=== PATIENT | female | born 1990 | race Caucasian/White ===

== ENCOUNTER 2019-04-13 16:12 | Emergency (ER) | payer OTHER ==
[~2019-04-13] VITALS: Ht 170.2 cm; Wt 78.0 kg
--- NOTE | 2019-04-13 16:21 | NUR ---
VIRI MEEKS AT BEDSIDE FOR MSE.
[2019-04-13] MEDS ORDERED: QUET25TA3 PO (16:29)
[2019-04-13] MEDS ORDERED: NEURONTIN PO (16:29)
[2019-04-13 16:33] VITALS: BP 142/80
--- NOTE | 2019-04-13 16:33 | NUR ---
Patient discharged to home in stable conditon. Written and verbal after care instructions given. Patient verbalizes understanding of instructions. ALL BELONGINGS W/ PT. PT SELF-AMBULATED W/O DIFFICULTY.
== END 2019-04-13 16:34 | disposition home or self-care (01) ==
LOC: ER 16:12
DX: L03.114 Cellulitis of left upper limb (principal); L81.8 Other specified disorders of pigmentation; F31.9 Bipolar disorder, unspecified; Z79.899 Other long term (current) drug therapy
CPT/HCPCS: A4663

== ENCOUNTER 2019-05-15 13:47 | Emergency (ER) | payer OTHER ==
[~2019-05-15] VITALS: Ht 170.2 cm; Wt 79.4 kg
[~2019-05-15 13:47] MED LIST: NEURONTIN PO; QUET25TA3 PO
--- NOTE | 2019-05-15 15:02 | NUR ---
Patient discharged to home in stable conditon. Written and verbal after care instructions given. Patient verbalizes understanding of instructions.
== END 2019-05-15 15:00 | disposition home or self-care (01) ==
LOC: ER 13:47
DX: K04.7 Periapical abscess without sinus (principal); L03.114 Cellulitis of left upper limb; F31.9 Bipolar disorder, unspecified; Z79.899 Other long term (current) drug therapy
CPT/HCPCS: A4663

== ENCOUNTER 2019-05-27 16:14 | Emergency (ER) | payer OTHER ==
[~2019-05-27] VITALS: Ht 170.2 cm; Wt 77.1 kg
[2019-05-27] MEDS ORDERED: LET TOPICAL SOLUTION 8 ML UDC TP ONE (17:00)
[2019-05-27] MEDS ORDERED: SODIUM BICARBONATE 4.2 % (NEUT) 5 ML VIAL TP ONE (17:00)
[2019-05-27] MEDS ORDERED: LIDOCAINE HCL 2% 20 ML VIAL IJ ONE (17:00)
[2019-05-27] MEDS ORDERED: LET TOPICAL SOLUTION 8 ML UDC ONE (17:50)
[2019-05-27] MEDS ORDERED: HYDROCODONE/APAP 5-325MG TABLET PO ONE (18:30)
--- NOTE | 2019-05-27 18:43 | NUR ---
Patient discharged to home in stable conditon. Written and verbal after care instructions given. Patient verbalizes understanding of instructions.pt not driving. pt accompanied with friend
[2019-05-27] MEDS ORDERED: HYDROCODONE/APAP 5-325MG TABLET ONE (18:44)
== END 2019-05-27 18:45 | disposition home or self-care (01) ==
LOC: ER 16:16
DX: L02.414 Cutaneous abscess of left upper limb (principal); F31.9 Bipolar disorder, unspecified; Z79.899 Other long term (current) drug therapy
CPT/HCPCS: 10060; 99283; J3490; A4663

== ENCOUNTER 2019-05-28 13:05 | Emergency (ER) | payer OTHER ==
[~2019-05-28] VITALS: Ht 170.2 cm; Wt 77.1 kg
--- NOTE | 2019-05-28 13:51 | NUR ---
Patient discharged to home in stable conditon. Written and verbal after care instructions given. Patient verbalizes understanding of instructions.
== END 2019-05-28 13:53 | disposition home or self-care (01) ==
LOC: ER 13:05
DX: Z48.01 Encounter for change or removal of surgical wound dressing (principal); F31.9 Bipolar disorder, unspecified; Z79.899 Other long term (current) drug therapy
CPT/HCPCS: A4663

== ENCOUNTER 2019-05-30 13:39 | Emergency (ER) | payer OTHER ==
[~2019-05-30] VITALS: Ht 172.7 cm; Wt 77.1 kg
--- NOTE | 2019-05-30 13:53 | NUR ---
Dr gusman at the bedside for MSE.
[2019-05-30] MEDS ORDERED: VANCOMYCIN IV 200 ML ONE (14:06)
[2019-05-30] MEDS: VANCOMYCIN IV 1,000 MG in IV DEXTROSE 5% 250 ML IV ONE (14:21)
[2019-05-30] MEDS ORDERED: LET TOPICAL SOLUTION 8 ML UDC ONE (16:15)
[2019-05-30] MEDS: LET TOPICAL SOLUTION 8 ML UDC TP ONE (16:17)
[2019-05-30] MEDS ORDERED: SODIUM BICARBONATE 4.2 % (NEUT) 5 ML VIAL ONE (16:23)
[2019-05-30] MEDS ORDERED: LIDOCAINE HCL 2% 20 ML VIAL ONE (16:24)
[2019-05-30] MEDS: LIDOCAINE HCL 2% 20 ML VIAL TP ONE (16:40)
[2019-05-30] MEDS: SODIUM BICARBONATE 4.2 % (NEUT) 5 ML VIAL TP ONE (16:40)
[2019-05-30 17:03] VITALS: BP 122/64
--- NOTE | 2019-05-30 17:03 | NUR ---
IV removed. Catheter intact and site benign. Pressure and 4x4 gauze applied to site. No bleeding noted.
--- NOTE | 2019-05-30 17:05 | NUR ---
Patient discharged to home in stable conditon. Written and verbal after care instructions given. Patient verbalizes understanding of instructions.
== END 2019-05-30 17:05 | disposition home or self-care (01) ==
LOC: ER 13:45
DX: L02.414 Cutaneous abscess of left upper limb (principal); F31.9 Bipolar disorder, unspecified; Z79.899 Other long term (current) drug therapy
CPT/HCPCS: 10060; 87070; 87077; 96365; 96366; 99283; J3370; J3490 ×2; A4663

== ENCOUNTER 2019-09-27 23:36 | Emergency (ER) | payer SELFPAY ==
[~2019-09-27] VITALS: Ht 170.2 cm; Wt 77.1 kg
[2019-09-28] MEDS ORDERED: SULFAMETH/TRIMETH 800/160 MG TABLET ONE (00:04)
[2019-09-28 00:05] VITALS: BP 125/78
--- NOTE | 2019-09-28 00:05 | NUR ---
Patient discharged to home in stable conditon. Written and verbal after care instructions given. Patient verbalizes understanding of instructions.
[2019-09-28] MEDS ORDERED: SULFAMETH/TRIMETH 800/160 MG TABLET PO ONE (00:15)
== END 2019-09-28 00:06 | disposition home or self-care (01) ==
LOC: ER 23:46
DX: J34.0 Abscess, furuncle and carbuncle of nose (principal); F17.200 Nicotine dependence, unspecified, uncomplicated; F31.9 Bipolar disorder, unspecified; Z79.899 Other long term (current) drug therapy
CPT/HCPCS: A4663